=== PATIENT | male | born 2000 | race American Indian/Alaskan Native ===

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

== ENCOUNTER 2022-11-01 23:40 | Emergency (ER) | payer MEDICAID | END 2022-11-02 00:28 | disposition home or self-care (01) | LOC: FB.ED 23:40 | DX: F41.9 Anxiety disorder, unspecified (principal) | CPT/HCPCS: 99283; 99284 ==